=== PATIENT | female | born 1975 | race Caucasian/White ===

== ENCOUNTER → 2025-07-11 | Outpatient (CLI) | payer OTHER, SELFPAY ==
[2025-07-14 13:08] LABS: HPV APTIMA, High Risk Negative (Negative)
== END | disposition home or self-care (01) ==
LOC: LABSPEC 10:21
PROVIDERS: PCP Family Medicine; Visit Provider Nurse Practitioner Women's Health
DX: Z12.4 Encounter for screening for malignant neoplasm of cervix (principal)
CPT/HCPCS: 87624; 88175; G0145

== ENCOUNTER → 2025-07-18 | Outpatient (CLI) | payer OTHER, SELFPAY ==
--- NOTE | 2025-07-18 15:16 | US_ITS ---
PROCEDURE: PELVIC W/ TRANSVAGINAL 07/18/2025 REASON FOR EXAM: CRAMPING. IUD CHECK TECHNIQUE: Procedure Code: [id number] Modality: US Procedure: PELVIC W/ TRANSVAGINAL FINDINGS: Uterus measures 9.6 x 5.5 x 3.8 cm. It is anteverted position. Uterus is very heterogenous. Fibroid noted within the uterus measuring 1.2 x 1.3 x 1.6 cm. Endometrial stripe measures 3 mm. It is hyperechoic. Nabothian cysts are noted at the cervix. IUD noted in the fundus. Right ovary measures 2.6 x 2.6 x 2.3 cm and left ovary measures 3.4 x 3.6 x 2.7 cm. There is dominant follicles within bilateral ovaries. Normal symmetrical blood flow within bilateral ovaries. No significant free fluid within the cul-de-sac. US/Pelvic w/ Transvaginal IMPRESSION: IUD noted at the uterine fundus. Uterus is very heterogenous. 1.6 cm fibroid noted. Reading Location: [id number]
== END | disposition home or self-care (01) ==
LOC: US 15:14
PROVIDERS: PCP Family Medicine; Referring Provider Nurse Practitioner Women's Health; Visit Provider Nurse Practitioner Women's Health
DX: N94.6 Dysmenorrhea, unspecified (principal); Z97.5 Presence of (intrauterine) contraceptive device
CPT/HCPCS: 76830; 76856

== ENCOUNTER → 2025-08-22 | Outpatient (CLI) | payer OTHER, SELFPAY ==
--- NOTE | 2025-08-22 14:30 | US_ITS ---
PROCEDURE: PELVIC W/ TRANSVAGINAL 08/22/2025 REASON FOR EXAM: IUD CHECK TECHNIQUE: Procedure Code: [id number] Modality: US Procedure: PELVIC W/ TRANSVAGINAL COMPARISON: Pelvic ultrasound dated 07/18/2025 FINDINGS: Measurements: Uterus: 9.7 x 5.0 x 3.8 cm with a volume of 97 mL Endometrial Thickness: 5 Right Ovary: 2.8 x 1.9 x 1.6 cm with a volume of 4.7 mL. Left Ovary: 3.0 x 3.2 x 2.0 cm with a volume of 10 mL. Uterus: The uterus is anteverted. There is a fibroid identified within the myometrium measuring 17 x 15 x 11 mm. IUD: There is an echogenic IUD within the fundal portion of the endometrium. Endometrium: Myometrium measures 5 mm and is hyperechoic. Cervix: There are nabothian cysts seen. Right ovary: Size, contour, and echogenicity are within normal limits. There is blood flow to the ovary. Left ovary: Size, contour, and echogenicity are within normal limits. There is blood flow to the ovary. Other: There is no fluid in the cul-de-sac. Bladder: Urinary bladder measures 12.6 x 9.6 x 7.6 cm. Urinary bladder volume is 479 mL. Bladder wall is smooth. There are no filling defects in the urinary bladder. US/Pelvic w/ Transvaginal IMPRESSION: IUD is in the fundal portion of the endometrium. Reading Location: [id number]
== END | disposition home or self-care (01) ==
LOC: US 14:28
PROVIDERS: PCP Family Medicine; Referring Provider Nurse Practitioner Women's Health; Visit Provider Nurse Practitioner Women's Health
DX: Z30.431 Encounter for routine checking of intrauterine contraceptive device (principal)
CPT/HCPCS: 76830; 76856